=== PATIENT | male | born 1935 | race Caucasian/White ===

== ENCOUNTER 2017-07-21 09:12 | Emergency (ER) | payer MEDICARE, OTHER ==
[~2017-07-21] VITALS: Ht 172.7 cm; Wt 65.0 kg
[2017-07-21] MEDS ORDERED: normal saline 1000ML IV soln IVB ONE (09:25)
[2017-07-21] MEDS ORDERED: morphine 4 MG/ML inj SYRINge IV ONE (09:25)
[2017-07-21] MEDS ORDERED: ondansetron/PF 4mg/2ml inj IV ONE (09:25)
[2017-07-21 09:37] VITALS: BP_SYST 52
[2017-07-21 09:44] LABS: BASOPHILS # (AUTO) 0.1 X10'3 (0-0.2); BASOPHILS % (AUTO) 0.5 % (0-1); EOSINOPHILS # (AUTO) 0.1 X10'3 (0-0.9); EOSINOPHILS % (AUTO) 1.1 % (0-6); HEMOGLOBIN 7.1 g/dl (14.0-17.9); LYMPHOCYTES # (AUTO) 4.4 X10'3 (1.1-4.8); LYMPHOCYTES % (AUTO) 37.8 % (21-51); MEAN CORPUSCULAR HGB CONC 33.7 % (33.0-36.5); MEAN CORPUSCULAR VOLUME 94.9 FL (78-98); MEAN PLATELET VOLUME 7.8 FL (7.4-10.4); MONOCYTES # (AUTO) 0.5 X10'3 (0-0.9); MONOCYTES % (AUTO) 4.3 % (2-12); NEUTROPHILS # (AUTO) 6.6 X10'3 (1.8-7.7); NEUTROPHILS % (AUTO) 56.3 % (42-75); PLATELET COUNT 98 X10'3 (140-440); RED BLOOD COUNT 2.22 X10'6 (4.70-6.10); RED CELL DISTRIBUTION WIDTH 13.2 % (11.5-14.5); WHITE BLOOD COUNT 11.6 X10'3 (4.5-11.0)
[2017-07-21 09:47] LABS: HEMATOCRIT 21.1 % (42.0-52.0)
== END 2017-07-21 11:20 | disposition expired ==
LOC: ER 09:13
DX: I46.9 Cardiac arrest, cause unspecified (principal); R10.84 Generalized abdominal pain; D64.9 Anemia, unspecified; I10 Essential (primary) hypertension; Z88.8 Allergy status to other drugs, medicaments and biological substances
CPT/HCPCS: 36415; 80047; 85025; 93005; 99285; J2270; J7030; J2405